=== PATIENT | male | born 1965 | race Caucasian/White ===

== ENCOUNTER → 2018-06-20 | Day surgery (SDC) | payer OTHER ==
[2018-06-15 11:16] VITALS: Ht 188 cm; Wt 145.4 kg
[~2018-06-20] VITALS: Ht 188 cm; Wt 145.4 kg
[~2018-06-20] MED LIST: CYAN100020 PO; FENTANYL CITRATE INJ 50 MCG/1 ML 2 ML VIAL ONE; LIDOCAINE HCL 2% 2 ML VIAL (20MG/ML) ONE; MIDAZOLAM HCL 1 MG/ML 2ML VIAL ONE; PROPOFOL IV EMULSION 10 MG/ML 20 ML VIAL ONE; VITACAP26 PO
[2018-06-20 12:33] VITALS: TEMP 36.8
--- NOTE | 2018-06-20 13:09 | Endo History and Physical ---
History & Physical Date of Service: Jun 20, 2018. Chief Complaint: screening Referring Physician: Dr. Lowery History of Present Illness For colonoscopy Past Surgical History Hx Cardiac Surgery: No Hx Internal Defibrillator: No Hx Pacemaker: No Hx Abdominal Surgery: No Hx of Implantable Prosthesis: No Hx Post-Op Nausea and Vomiting: No Hx Cancer Surgery: No Hx Thoracic Surgery: No Hx Orthopedic: No Hx Urinary Tract Surgery: No Family History Polyp Social History Smoking Status: Never Smoker Hx Substance Use: No Hx Alcohol Use: Yes (ABOUT 4 DRINKS (LIQUOR OR WINE) ON THE WEEKEND) Allergies Coded Allergies: BEE STING (Verified Allergy, Severe, ANAPHYLAXIS, 06/20/18) Penicillins (Verified Allergy, Unknown, UNKNOWN, 06/20/18) Current Medications Reported Home Medications Medications Dose Route/Sig Max Daily Dose Days Date Category Vitamin B12 (Cyanocobalamin) 1,000 Mcg Tab 1 Tab PO DAILY 06/15/18 Reported Vitamin C (Vitamins C & E) 1 Cap Cap 1 Cap PO DAILY 06/15/18 Reported Vital Signs Weight (Kilograms): 145.45 Height (Feet): 6 Height (Inches): 2 Date Time Temp Pulse Resp B/P (MAP) Pulse Ox O2 Delivery O2 Flow Rate FiO2 06/20/18 13:06 165/101 (122) 06/20/18 12:33 36.8 61 20 191/112 (138) 95 Room Air Physical Exam General Appearance: + obese Respiratory/Chest: Respiratory effort: no dyspnea Cardiovascular: Heart Auscultation: RRR Abdomen: Inspection & Palpation: soft Assessment and Plan For screening colonoscopy
--- NOTE | 2018-06-20 13:51 | Discharge Instructions ---
Endoscopy Patient Instructions Date / Procedure(s) Performed Jun 20, 2018. Colonoscopy Allergy Information Coded Allergies: BEE STING (Verified Allergy, Severe, ANAPHYLAXIS, 06/20/18) Penicillins (Verified Allergy, Unknown, UNKNOWN, 06/20/18) Discharge Date / Findings Jun 20, 2018. polyps, diverticulosis, hemorrhoids Medication Instructions Restart Stopped Medication(s): resume meds Reported Home Medications Medications Dose Route/Sig Max Daily Dose Days Date Category Vitamin B12 (Cyanocobalamin) 1,000 Mcg Tab 1 Tab PO DAILY 06/15/18 Reported Vitamin C (Vitamins C & E) 1 Cap Cap 1 Cap PO DAILY 06/15/18 Reported Provider Instructions Activity Restrictions - No exercising or heavy lifting for 24 hours. - Do not drink alcohol the day of the procedure. - Do not drive a car or operate machinery until the day after the procedure. - Do not make any important decisions or sign important papers in 24 hours after the procedure. Following Day: - Return to full activity which may include returning to work/school. Diet Start your diet with liquids and light foods (jello, soup, juice, toast). Then eat your usual diet if not nauseated. Treatment For Common After Affects For mild abdominal pain, bloating, or excessive gas: - Rest - Eat lightly - Lie on right side Follow-Up Information Follow-up with Dr. Lowery as scheduled Anesthesia Information What You Should Know You have had a procedure that required some medicine to reduce anxiety and discomfort. This treatment is called moderate sedation. After receiving the treatment, you may be sleepy, but you will be able to breathe on your own. The effects of the treatment may last for several hours. Follow these instructions along with Activity/Diet recommendations noted above: * Do NOT do anything where dizziness or clumsiness would be dangerous. * Rest quietly at home today, then you can be up and about tomorrow. * Have a responsible person stay with you the rest of today. * You may have had an I.V. today. If so, you may take the dressing off later today. Recommendations Call your doctor if: * Trouble breathing * Continuous vomiting for more than 24 hours * Temperature above 101 degrees * Severe abdominal pain or bloating * Pain not relieved by pain medicine ordered * There is increased drainage or redness from any incision * A large amount of rectal bleeding greater than 2-3 tablespoons. (If you had a polyp/s removed or have hemorrhoids, a small amount of blood - from the rectum is to be expected.) * You have any unanswered questions or concerns. IN THE EVENT OF A SERIOUS EMERGENCY, GO TO THE NEAREST EMERGENCY ROOM Your discharge instructions were prepared by provider Austin Sylvester. Patient Instructions Signature Page Virgilio Alvarez Patient (or Guardian) Signature/Date: I have read and understand the instructions given to me by my caregivers. Caregiver/RN/Doctor Signature/Date: The above-named patient and/or guardian has received patient instructions on this date. + Original Patient Signature Page (only) stays with chart. Please make copy for patient.
--- NOTE | 2018-06-20 13:55 | GI REPORT ---
Patient Name: Virgilio Alvarez Procedure Date: 06/20/2018 12:33 PM Date of : 1965 Admit Type: Outpatient Age: 52 Gender: Male Attending MD: Austin Sylvester MD Procedure: Colonoscopy Providers: Austin Sylvester MD Referring MD: Eliot Lowery Indications: Screening for colorectal malignant neoplasm Medicines: Fentanyl 100 micrograms IV, Midazolam 2 mg IV, Propofol total dose 330 mg IV, Lidocaine 40 mg IV Complications: No immediate complications. Estimated Blood Loss: Estimated blood loss: none. Procedure: Pre-Anesthesia Assessment: - Prior to the procedure, a History and Physical was performed, and patient medications, allergies and sensitivities were reviewed. The patient's tolerance of previous anesthesia was reviewed. - The risks and benefits of the procedure and the sedation options and risks were discussed with the patient. All questions were answered and informed consent was obtained. After I obtained informed consent, the scope was passed under direct vision. Throughout the procedure, the patient's blood pressure, pulse, and oxygen saturations were monitored continuously. The scope was introduced through the anus and advanced to the cecum, identified by appendiceal orifice and ileocecal valve. The colonoscopy was somewhat difficult due to significant looping. Successful completion of the procedure was aided by applying abdominal pressure. The patient tolerated the procedure well. The quality of the bowel preparation was good. Findings: Multiple diverticula were found in the sigmoid colon. Non-bleeding internal hemorrhoids were found during endoscopy. The hemorrhoids were mild. Two sessile polyps were found in the cecum. The polyps were 5 to 6 mm in size. These polyps were removed with a hot snare. Resection and retrieval were complete. Estimated blood loss: none. A 5 mm polyp was found in the sigmoid colon. The polyp was sessile. The polyp was removed with a hot snare. Resection and retrieval were complete. Estimated blood loss: none. Impression: - Diverticulosis in the sigmoid colon. - Non-bleeding internal hemorrhoids. - Two 5 to 6 mm polyps in the cecum, removed with a hot snare. Resected and retrieved. - One 5 mm polyp in the sigmoid colon, removed with a hot snare. Resected and retrieved. Recommendation: - Discharge patient to home (ambulatory). - Continue present medications. - Await pathology results. - Return to primary care physician PRN. Austin Dooley. Nga, M.D. Austin Sylvester MD 06/20/2018 1:55:02 PM This report has been signed electronically. Note Initiated On: 06/20/2018 12:33 PM Number of Addenda: 0 I attest to the content of the Intraoperative Record and orders documented therein, exceptions below {[id number]}
[2018-06-20 14:20] VITALS: BP 176/88; PULSE 56; O2SAT 97
--- NOTE | 2018-06-20 14:32 | Anesthesiology Progress Note ---
Anesthesia Post Op Note Date & Time Jun 20, 2018 at 14:30 Vital Signs Pain Intensity: 0 Vital Signs Past 12 Hours Date Time Temp Pulse Resp B/P (MAP) Pulse Ox O2 Delivery O2 Flow Rate FiO2 06/20/18 14:20 56 18 176/88 (117) 97 Room Air 06/20/18 14:08 55 20 179/113 (135) 96 Room Air 06/20/18 13:58 55 20 168/107 (127) 96 Room Air 06/20/18 13:51 59 20 144/88 (106) 93 Room Air 06/20/18 13:06 165/101 (122) 06/20/18 12:33 36.8 61 20 191/112 (138) 95 Room Air Notes Mental Status: alert / awake / arousable, participated in evaluation Pt Amnestic to Procedure: Yes Nausea / Vomiting: adequately controlled Pain: adequately controlled Airway Patency, RR, SpO2: stable & adequate BP & HR: stable & adequate Hydration State: stable & adequate Anesthetic Complications: no major complications apparent Pt with h/o HTN but no currently taking any meds. Aware of BP issues. Currently asymptomatic. Was counseled to follow up with PCP regarding his BP and stated that he has an appointment coming up soon. BP stable at baseline.
== END | disposition home or self-care (01) ==
LOC: C.GI 12:05
PROVIDERS: ATTEND Internal Medicine Gastroenterology
DX: Z12.11 Encounter for screening for malignant neoplasm of colon (principal); K57.30 Diverticulosis of large intestine without perforation or abscess without bleeding; D12.0 Benign neoplasm of cecum; D12.5 Benign neoplasm of sigmoid colon; I10 Essential (primary) hypertension; E66.01 Morbid (severe) obesity due to excess calories; Z88.0 Allergy status to penicillin; Z91.030 Bee allergy status; Z68.41 Body mass index [BMI] 40.0-44.9, adult